=== PATIENT | male | born 1960 | race Caucasian/White ===

== ENCOUNTER 2016-07-24 21:29 | Emergency (ER) | payer OTHER ==
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
[~2016-07-24 21:29] MED LIST: ASPIRIN1 GM PO; CRESTOR PO; FISH OIL 1,2001 EACH PO; IBUPROFEN100 MG PO; IBUPROFEN800 MG PO; KEFLEX PO; NORFLEX100 M1 PO; VICODIN 5/1 TAB 5/50 PO
[2016-07-24] MEDS ORDERED: AMOXICILLIN500 M1 PO (22:21)
[2016-07-24] MEDS ORDERED: ROBAXIN 750750 MG PO (22:22)
== END 2016-07-24 22:22 | disposition home or self-care (01) ==
LOC: SED 21:29
DX: S13.4XXA Sprain of ligaments of cervical spine, initial encounter (principal); S23.3XXA Sprain of ligaments of thoracic spine, initial encounter; S33.5XXA Sprain of ligaments of lumbar spine, initial encounter; S09.90XA Unspecified injury of head, initial encounter; J32.9 Chronic sinusitis, unspecified; E78.5 Hyperlipidemia, unspecified; F17.200 Nicotine dependence, unspecified, uncomplicated; Z91.041 Radiographic dye allergy status; V49.40XA Driver injured in collision with unspecified motor vehicles in traffic accident, initial encounter; Y92.410 Unspecified street and highway as the place of occurrence of the external cause
CPT/HCPCS: 70450; 72072; 72100; 72125; 99284

== ENCOUNTER 2016-10-07 22:04 | Emergency (ER) | payer OTHER ==
[~2016-10-07 22:04] MED LIST changes: +AMOXICILLIN500 M1 PO; +ROBAXIN 750750 MG PO
== END 2016-10-07 23:29 | disposition left against medical advice (07) ==
LOC: SED 22:04
DX: Z53.21 Procedure and treatment not carried out due to patient leaving prior to being seen by health care provider (principal)

== ENCOUNTER 2016-10-11 16:16 | Emergency (ER) | payer MEDICARE, OTHER ==
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
== END 2016-10-11 18:06 | disposition home or self-care (01) ==
LOC: SED 16:16
DX: S81.811A Laceration without foreign body, right lower leg, initial encounter (principal); Z91.041 Radiographic dye allergy status; W26.9XXA Contact with unspecified sharp object(s), initial encounter; Y92.009 Unspecified place in unspecified non-institutional (private) residence as the place of occurrence of the external cause
CPT/HCPCS: 12001; 73590; 99283